=== PATIENT | female | born 1990 | race Hispanic/Latino ===

== ENCOUNTER 2023-12-23 12:47 | Observation (INO) | payer MEDICAID, SELFPAY ==
[2023-12-23] VITALS (7 sets, daily range): BP systolic 106–133; BP diastolic 70–81; PULSE 65–90; RESP 16–18; TEMP 36.5–37.2; O2SAT 94–99; BMI 30.2
[2023-12-23] MEDS: ONDANSETRON 4 MG/2 ML INJ IV (13:16)
[2023-12-23 13:37] LABS: Add Manual Diff / Slide Review NO; Basophils Absolute Auto 0 /uL (0-100); Basophils Percent Auto 0.3 % (0-2); Eosinophils Absolute Auto 0 /uL (0-450); Eosinophils Percent Auto 0.1 % (2-4); Hematocrit 39.4 % (36-46); Hemoglobin 13.4 g/dL (12.0-16.0); Lymphocytes Absolute Auto 700 /uL (1100-4500); Lymphocytes Percent Auto 5.8 % (25-40); Mean Corpuscular HGB Conc 34.1 % (30-36); Mean Corpuscular Hemoglobin 29.8 PG (26-34); Mean Corpuscular Volume 87.3 fL (80-100); Monocytes Absolute Auto 600 /uL (0-900); Monocytes Percent Auto 4.7 % (3-14); Neutrophils Absolute Auto 11100 /uL (1500-7000); Neutrophils Percent Auto 89.1 % (50-75); Platelet Count 288 X10^3/uL (150-400); Red Blood Cell Count 4.51 X10^6/uL (4.0-5.2); Red Cell Distribution Width 13.9 % (11.6-14.8); White Blood Cell Count 12.4 X10^3/uL (4.5-11.0)
[2023-12-23 13:46] LABS: Alanine Aminotransferase 14 IU/L (<35); Albumin 4.8 g/dL (3.5-5.0); Albumin Globulin Ratio 1.5 (1.0-2.8); Alkaline Phosphatase 109 U/L (38-126); Aspartate Aminotransferase 21 IU/L (14-36); BUN Creatinine Ratio 15.5 (6-22); Blood Urea Nitrogen 9 mg/dL (7-17); Calcium 9.5 mg/dL (8.4-10.2); Carbon Dioxide 18 mmol/L (22-32); Chloride 107 mmol/L (98-107); Estimated Glomerular Filt Rate > 60 mL/min (>60); Globulin 3.3 g/dL (1.7-4.1); Glucose 130 mg/dL (70-100); HEMOLYSIS < 15 (0-50); Lipase 57 U/L (23-300); Potassium 3.5 mmol/L (3.4-5.1); Sodium 139 mmol/L (137-145); Total Protein 8.1 g/dL (6.3-8.2)
[2023-12-23 13:59] LABS: Bacteria Urine Occasional (0-1); Culture Indicated Urine Cult Not Indicated; RBC Urine 1-5/HPF (0-5/HPF); Squamous Epithelial Cell Urine 5-10 /HPF (0-5/HPF); Urine Volume 10mL (spun); WBC Urine 5-10/HPF (0-5/HPF)
--- NOTE | 2023-12-23 15:22 | ED.ABDPAIN ---
HPI - Abdominal Pain General Chief Complaint: Abdominal Pain Stated Complaint: abd pain/thinks galbladder Time Seen by Provider: 12/23/23 15:21 Source: patient, RN notes reviewed and old records reviewed Mode of arrival: Ambulatory Limitations: no limitations History of Present Illness HPI narrative: 33-year-old female several months and presents with a right upper quadrant abdominal pain nausea and vomiting. Patient states she has had symptoms on and off in the past but this has been persistent. Started at 5:00 a.m. this morning. She states movement does make it worse but also eating certain foods. Denies fevers but she was feeling chilled and sweaty when she was throwing up earlier this morning. She has had nausea and vomiting on off today. Pain is in the right upper quadrant radiates a little bit to her back. Denies any radiation elsewhere. Normal bowel movements no black or bloody stools. No dysuria urgency or frequency. No new vaginal bleeding or discharge. Patient states no daily prescription medications, did take Tylenol earlier this morning but states she thinks she threw it up. Denies any prior surgeries. No known drug allergies. No tobacco, alcohol or recreational drugs. Related Data Allergies Allergy/AdvReac Type Severity Reaction Status Date / Time No Known Drug Allergies Allergy Verified 12/23/23 13:15 Review of Systems Review of Systems ROS Unobtainable: All systems reviewed & are unremarkable except as noted in HPI and below Patient History Social History Smoking Status: Unknown if ever smoked Smoking Status: Unknown if ever smoked alcohol intake frequency: holidays/special occasions only Substance Use Type: does not use Exam Narrative Exam Narrative: GENERAL: Alert and oriented x three, female in moderate distress HEENT: Head normocephalic, atraumatic, EOMI, pupils reactive, face symmetric, moist mucous membranes NECK: Supple, full range of motion CARDIOVASCULAR: Regular rate and rhythm without murmurs, rubs or gallops. RESPIRATORY: Breath sounds equal bilaterally, no wheezes rales or rhonchi. ABDOMEN: Soft, positive for right upper quadrant tenderness Normoactive bowel sounds all 4 quadrants. No guarding or rebound, rigidity, no mass, no pulsatile mass or bruit. : No CVA tenderness EXTREMITIES: Normal range of motion, no clubbing or edema. Neurovascularly intact NEUROLOGICAL: Cranial nerves II through XII grossly intact. Moving all extremities SKIN: Warm, dry, no petechiae, no rashes or lesions. Initial Vital Signs Initial Vital Signs: Vital Signs Temperature 97.7 F 12/23/23 13:00 Pulse Rate 65 12/23/23 13:00 Respiratory Rate 18 12/23/23 13:00 Blood Pressure 133/81 12/23/23 13:00 Pulse Oximetry 97 12/23/23 13:00 Oxygen Delivery Method Room Air 12/23/23 13:00 Course Orders Ordered: ED Orders 12/23/23 13:05 Urine Culture Stat Urine Microscopic Stat 12/23/23 13:06 EKG-12 Lead Stat 12/23/23 13:11 Complete Blood Count AUTO DIFF Stat Comprehensive Metabolic Panel Stat Lipase Stat 12/23/23 15:39 US abdomen limited Stat Acetaminophen (Acetaminophen 325 Mg Tablet) 650 mg PO Q6H PRN PRN Reason: Fever/Mild Pain (1-3) Hydrocodone Bitart/Acetaminophen (Hydrocodone/Acet 5/325 Tablet) 1 tab PO Q4H PRN PRN Reason: Pain, Moderate (4-6) Hydrocodone Bitart/Acetaminophen (Hydrocodone/Acet 5/325 Tablet) 2 tab PO Q4H PRN PRN Reason: Pain, Severe (7-10) Hydromorphone HCl (Hydromorphone 0.5 Mg Inj) 0.5 mg IV Q2H PRN PRN Reason: Pain, Severe (7-10) Sodium Chloride (Normal Saline 0.9%) 1,000 mls @ 150 mls/hr IV CONT CONNOR Last Admin: 12/23/23 18:15 Dose: 150 mls/hr Documented By: Infusion: 12/23/23 18:15 Dose: Infused Documented By: Infusion: 12/23/23 17:38 Dose: 0 mls/hr Documented By: Infusion: 12/23/23 17:22 Dose: 0 mls/hr Documented By: Admin: 12/23/23 17:22 Dose: 150 mls/hr Documented By: KOFI Lactated Ringer's (Lactated Ringers) 1,000 mls @ 100 mls/hr IV CONT CONNOR Piperacillin Sod/Tazobactam (Sod 3.375 gm/ Sodium Chloride) 100 mls @ 25 mls/hr IV Q8H CONNOR Ibuprofen (Ibuprofen 600 Mg Tablet) 600 mg PO Q6H PRN PRN Reason: Fever/Mild Pain (1-3) Naloxone HCl (Naloxone 0.4 Mg/Ml Vial) 0.2 mg IV Q2MIN PRN PRN Reason: Opiate Reversal Ondansetron HCl (Ondansetron 4 Mg/2 Ml Inj) 4 mg IV NOW PRN PRN Reason: Nausea And Vomiting Last Admin: 12/23/23 13:16 Dose: 4 mg Documented By: BS Ondansetron HCl (Ondansetron 4 Mg Odt) 4 mg PO NOW PRN PRN Reason: Nausea And Vomiting Discontinued Medications Sodium Chloride (Normal Saline 0.9%) 1,000 mls @ 1,000 mls/hr IV BOLUS ONE Stop: 12/23/23 16:38 Last Infusion: 12/23/23 17:08 Dose: Infused Documented By: Admin: 12/23/23 15:47 Dose: 1,000 mls/hr Documented By: KOFI Piperacillin Sod/Tazobactam (Sod 4.5 gm/ Sodium Chloride) 100 mls @ 200 mls/hr IV NOW ONE Stop: 12/23/23 17:07 Last Admin: 12/23/23 17:21 Dose: 200 mls/hr Documented By: KOFI Piperacillin Sod/Tazobactam (Sod 3.375 gm/ Sodium Chloride) 100 mls @ 25 mls/hr IV Q8H [facility] Last Admin: 12/23/23 18:14 Dose: Not Given Documented By: CHAS Ketorolac Tromethamine (Ketorolac 30 Mg/Ml Vial) 15 mg IV NOW ONE Stop: 12/23/23 15:40 Last Admin: 12/23/23 15:48 Dose: 15 mg Documented By: KOFI Morphine Sulfate (Morphine 4 Mg/Ml Inj) 4 mg IV NOW ONE Stop: 12/23/23 17:08 Last Admin: 12/23/23 17:20 Dose: 4 mg Documented By: KOFI Vital Signs Vital signs: Vital Signs - 8 hr 12/23/23 13:00 12/23/23 13:04 12/23/23 13:05 Temperature 97.7 F Pulse Rate 65 66 Respiratory Rate 18 Blood Pressure 133/81 133/81 Pulse Oximetry 97 99 Oxygen Delivery Method Room Air Room Air 12/23/23 14:21 12/23/23 14:21 12/23/23 17:05 Temperature 98.5 F Pulse Rate 68 90 Respiratory Rate Blood Pressure 106/70 110/72 Pulse Oximetry 99 94 Oxygen Delivery Method Room Air MDM - Abdominal Pain Lab Data 12/23/23 13:11 12/23/23 13:11 Labs: Lab Results 12/23/23 12/23/23 Range/Units 13:05 13:11 WBC 12.4 H (4.5-11.0) X10^3/uL RBC 4.51 (4.0-5.2) X10^6/uL Hgb 13.4 (12.0-16.0) g/dL Hct 39.4 (36-46) % MCV 87.3 (80-100) fL MCH 29.8 (26-34) PG MCHC 34.1 (30-36) % RDW 13.9 (11.6-14.8) % Plt Count 288 (150-400) X10^3/uL Neut % (Auto) 89.1 H (50-75) % Lymph % (Auto) 5.8 L (25-40) % [place] % (Auto) 4.7 (3-14) % Eos % (Auto) 0.1 L (2-4) % Baso % (Auto) 0.3 (0-2) % Neut # (Auto) 70659 H (9649-2048) /uL Lymph # (Auto) 700 L (1074-7794) /uL [place] # (Auto) 600 (0-900) /uL Eos # (Auto) 0 (0-450) /uL Baso # (Auto) 0 (0-100) /uL Sodium 139 (137-145) mmol/L Potassium 3.5 (3.4-5.1) mmol/L Chloride 107 (98-107) mmol/L Carbon Dioxide 18 L (22-32) mmol/L BUN 9 (7-17) mg/dL Creatinine 0.58 (0.52-1.04) mg/dL Estimated GFR > 60 (>60) mL/min BUN/Creatinine Ratio 15.5 (6-22) Glucose 130 H (70-100) mg/dL Calcium 9.5 (8.4-10.2) mg/dL Total Bilirubin 1.0 (0.2-1.3) mg/dL AST 21 (14-36) IU/L ALT 14 (<35) IU/L Alkaline Phosphatase 109 (38-126) U/L Total Protein 8.1 (6.3-8.2) g/dL Albumin 4.8 (3.5-5.0) g/dL Globulin 3.3 (1.7-4.1) g/dL Albumin/Globulin Ratio 1.5 (1.0-2.8) Lipase 57 (23-300) U/L Urine RBC 1-5/hpf (0-5/HPF) Urine WBC 5-10/hpf H (0-5/HPF) Ur Squamous Epith Cells 5-10 /hpf H (0-5/HPF) Urine Bacteria Occasional (0-1) (None) Ur Culture Indicated? Cult not indicated Vol Urine Centrifuged 10ml (spun) Point of care testing: Point of Care Testing Test Results Negative Urine Dip Bedside Urine Glucose Negative Bedside Urine Bilirubin - Negative Bedside Urine Ketone +++ 80 Urine Specific [place] 1.015 Bedside Urine Occult Blood +/- Bedside Urine pH 8.5 Bedside Urine Protein +/- 15 Bedside Urine Urobilinogen +/- 1mg Bedside Urine Nitrite - Negative Bedside Urine Leukocytes +/- 15 Esterase Imaging Data US - abdomen: Radiologist's Impression: Shona Irby??33??F??1990 ? Allergy/Adv: No Known Drug Allergies (More??) Close Abdomen Ultrasound (Signed) Elly Monsalve - 12/23/23 Launch?[place] [address] Ultrasound Report Signed Patient: Shona Irby MR#: [id number] : 1990 Acct:[id number] Age/Sex: 33 / F Date of Service: 12/23/23 Loc: ED Accession Number: [id number] Procedure: US abdomen limited Ordering Provider: Xiomara Wright D.O. PROCEDURE: US ABDOMEN LIMITED INDICATIONS: RUQ pain, n/v, intermittent symptoms TECHNIQUE: Real-time focused scanning was performed of the abdomen, with image documentation. COMPARISON: None. FINDINGS: Liver measures 16.4 cm with mild steatosis. Multiple stones are present within the gallbladder. Wall thickness measures 4.9 mm. Pericholecystic fluid is present. Sonographic Muro sign is present. Common bile duct measures 5.9 mm. IMPRESSION: Cholelithiasis with thickened gallbladder wall and mild appearance of pericholecystic fluid most consistent with cholecystitis. Dictated by: Elly Monsalve M.D. on 12/23/2023 at 16:59 Approved by: Elly Monsalve M.D. on 12/23/2023 at 16:59 MDM Narrative Medical decision making narrative: 33-year-old female with right upper quadrant tenderness, nausea vomiting and discomfort has been intermittent recently but persistent since 5:00 a.m. this morning. Patient is tender in her right upper quadrant on exam. White count of 12 point, hemoglobin of 13 platelets are 288. Chemistries show CO2 18 normal sodium and potassium with a chloride of 107, glucose of 130 creatinine 0.58 LFTs are Point of care urine shows ketones, urobilinogen, leukocyte esterase. Urine is negative urine micro 1-5 RBCs 5-10 WBCs 5-10 squamous, occasional bacteria Abdominal ultrasound shows gallstones, thickened gallbladder wall 4.9 mm, mild steatosis multiple stones, pericholecystic fluid positive Muro sign and common bile duct measuring 5.9 mm. Patient received fluids, Zofran and Toradol on recheck patient has improved but still uncomfortable. Discussed she is agreeable to something little bit stronger for pain she took 4000 mg of Tylenol earlier today we will give a dose of morphine. Discussed she can still breastfeed but needs to have someone around take baby if she gets sleepy and to watch. Discussed with Dr. Barba who accepts for gallstones and cholecystitis. Patient covered with dose IV antibiotic continue with fluids, pain management and plan for OR likely tomorrow. Discharge Plan Departure Patient Disposition: Admitted As Inpatient Clinical Impression: Calculous cholecystitis Admit Date/Time: 12/23/23 17:07 Admit Provider: Edward Barba
--- NOTE | 2023-12-23 15:39 | DI.US.S_ITS ---
PROCEDURE: US ABDOMEN LIMITED INDICATIONS: RUQ pain, n/v, intermittent symptoms TECHNIQUE: Real-time focused scanning was performed of the abdomen, with image documentation. COMPARISON: None. FINDINGS: Liver measures 16.4 cm with mild steatosis. Multiple stones are present within the gallbladder. Wall thickness measures 4.9 mm. Pericholecystic fluid is present. Sonographic Muro sign is present. Common bile duct measures 5.9 mm. IMPRESSION: Cholelithiasis with thickened gallbladder wall and mild appearance of pericholecystic fluid most consistent with cholecystitis. Dictated by: Elly Monsalve M.D. on 12/23/2023 at 16:59 Approved by: Elly Monsalve M.D. on 12/23/2023 at 16:59
[2023-12-23] MEDS: SODIUM CHLORIDE 0.9% 1,000 ML 1000 ML IV (15:47)
[2023-12-23] MEDS: KETOROLAC 30 MG/ML VIAL 15 MG IV (15:48)
[2023-12-23] MEDS: MORPHINE 4 MG/ML INJ IV (17:20)
[2023-12-23] MEDS: PIPERACILLIN/TAZO 4.5 GM in SODIUM CHLORIDE 0.9% 100 ML IV (17:21)
[2023-12-23] MEDS: SODIUM CHLORIDE 0.9% 1,000 ML 150 ML IV ×3 (17:22→19:00)
--- NOTE | 2023-12-23 17:45 | PM.HP.1 ---
History of Present Illness History of Present Illness Date Patient Seen: 12/23/23 Time Patient Seen: 17:45 Chief complaint: abd pain/thinks galbladder Narrative: Shona is a 33-year-old woman who presented to the ER today with one day of severe right upper quadrant abdominal pain. She has had less severe right upper quadrant pain for quite some time. No prior abdominal surgeries. [facility] Social History Smoking Status: Unknown if ever smoked Meds Home Medications and Allergies Allergies Allergy/AdvReac Type Severity Reaction Status Date / Time No Known Drug Allergies Allergy Verified 12/23/23 13:15 Exam Vital Signs (past 8 hours): - 12/23/23 13:00 12/23/23 13:04 12/23/23 13:05 Temperature 97.7 F Pulse Rate 65 66 Respiratory Rate 18 Blood Pressure 133/81 133/81 Pulse Oximetry 97 99 Oxygen Delivery Method Room Air Room Air 12/23/23 14:21 12/23/23 14:21 12/23/23 17:05 Temperature 98.5 F Pulse Rate 68 90 Respiratory Rate Blood Pressure 106/70 110/72 Pulse Oximetry 99 94 Oxygen Delivery Method Room Air Oxygen Delivery Method Room Air Narrative Exam Narrative: Tenderness to palpation in the right upper quadrant without anurag peritonitis Objective Labs 12/23/23 13:11 12/23/23 13:11 Labs: Laboratory Results - last 24 hr 12/23/23 12/23/23 13:05 13:11 WBC 12.4 H RBC 4.51 Hgb 13.4 Hct 39.4 MCV 87.3 MCH 29.8 MCHC 34.1 RDW 13.9 Plt Count 288 Neut % (Auto) 89.1 H Lymph % (Auto) 5.8 L [place] % (Auto) 4.7 Eos % (Auto) 0.1 L Baso % (Auto) 0.3 Neut # (Auto) 31136 H Lymph # (Auto) 700 L [place] # (Auto) 600 Eos # (Auto) 0 Baso # (Auto) 0 Sodium 139 Potassium 3.5 Chloride 107 Carbon Dioxide 18 L BUN 9 Creatinine 0.58 Estimated GFR > 60 BUN/Creatinine Ratio 15.5 Glucose 130 H Calcium 9.5 Total Bilirubin 1.0 AST 21 ALT 14 Alkaline Phosphatase 109 Total Protein 8.1 Albumin 4.8 Globulin 3.3 Albumin/Globulin Ratio 1.5 Lipase 57 Urine RBC 1-5/hpf Urine WBC 5-10/hpf H Ur Squamous Epith Cells 5-10 /hpf H Urine Bacteria Occasional (0-1) Ur Culture Indicated? Cult not indicated Vol Urine Centrifuged 10ml (spun) Assessment & Plan Assessment and plan (1) Acute cholecystitis due to biliary calculus: Status: Acute Plan Plan for laparoscopic cholecystectomy with Dr. Rubalcava tomorrow pending OR availability. We will start her on antibiotics for presumed acute cholecystitis. Time-Based Coding :: [TOTAL MINUTES] spent with patient and on the chart (including review of chart, obtaining history, exam, reviewing outside data, placing orders, documenting exam and treatment plan, and counseling patient) on [DATE].
--- NOTE | 2023-12-23 18:57 | PC.NURSE ---
Addendum entered by Анна Aquino R.N. 12/23/23 20:12: Pt is A&OX4, VSS,afebrile on RA. She reports pain is controlled from pain medication received in ED, and currently denies pain. She reports feeling starving but is afraid to eat, as she had been vomiting throughout the day. She is able to tolerate jello and pudding this evening. IV abx zosyn then IVF LR at 150ml/hr,, admission assessment completed, she is oriented to room and unit. She is independent in the room and calls appropriately for assistance. Continuous monitoring. Original Note: Patient arrived from ED at 1747
[2023-12-23] MEDS: HYDROCODONE/ACET 5/325 TABLET 1 TAB PO (20:01)
[2023-12-23] MEDS: LACTATED RINGERS 1,000 ML 100 ML IV (20:08)
[2023-12-23] MEDS: PIPERACILLIN/TAZO 3.375 GM in SODIUM CHLORIDE 0.9% 100 ML IV (20:58)
[2023-12-24] VITALS (8 sets, daily range): BP systolic 88–123; BP diastolic 53–77; PULSE 87–111; RESP 14–19; TEMP 36.8–37.6; O2SAT 92–100; BMI 30.2
--- NOTE | 2023-12-24 | PATH_ITS ---
[facility] Accession Number: [id number] No. of containers..01 Tissue . 01 Material submitted: . gallbladder - GALLBLADDER . 01 Diagnosis: GALLBLADDER, CHOLECYSTECTOMY: Acute and chronic cholecystitis with cholelithiasis. Negative for dysplasia or malignancy. TXN 12/27/2023 1349 Local . 01 Electronically signed: . Jun Aguirre MD, Pathologist NPI- [id number] . 01 Gross description: . Received in formalin, labeled with two identifiers and gallbladder, is an intact gallbladder measuring 11.1 x 5.6 x 3.9 cm with an unremarkable helton external surface. The cystic duct margin is inked blue. No pericystic lymph node is identified. The lumen contains multiple dark, smooth calculi measuring up to 2.5 cm in greatest dimension, grossly obstructing the cystic duct. The mucosa is diffusely beatty-brown and trabecular with multiple ulcerated areas ranging from 0.4-0.7 cm in greatest dimension. No yellow discoloration or polyps are identified. The quinones average 0.4 cm thick. Data Deliver[employer] Manager sections to include the cystic duct margin and full-thickness sections to include ulcerated areas are submitted in cassette A1. ([id number]) /FRR 12/25/2023 1625 Local . 01 Pathologist provided ICD-10: K81.9 . 01 CPT . 267615 Specimen Comment: A courtesy copy of this report has been sent to [phone] Performed at: [address] [id number] MD Bill Boyle MD Phone: [phone]
[2023-12-24] MEDS: PIPERACILLIN/TAZO 3.375 GM in SODIUM CHLORIDE 0.9% 100 ML IV (05:59)
[2023-12-24 06:43] LABS: Add Manual Diff / Slide Review NO; Basophils Absolute Auto 0 /uL (0-100); Basophils Percent Auto 0.2 % (0-2); Eosinophils Absolute Auto 0 /uL (0-450); Hematocrit 38.7 % (36-46); Hemoglobin 13.5 g/dL (12.0-16.0); Lymphocytes Absolute Auto 700 /uL (1100-4500); Lymphocytes Percent Auto 3.7 % (25-40); Mean Corpuscular HGB Conc 34.9 % (30-36); Mean Corpuscular Hemoglobin 30.7 PG (26-34); Mean Corpuscular Volume 87.9 fL (80-100); Monocytes Absolute Auto 1300 /uL (0-900); Monocytes Percent Auto 6.7 % (3-14); Neutrophils Absolute Auto 17000 /uL (1500-7000); Neutrophils Percent Auto 89.4 % (50-75); Platelet Count 252 X10^3/uL (150-400); Red Blood Cell Count 4.41 X10^6/uL (4.0-5.2); Red Cell Distribution Width 13.7 % (11.6-14.8)
[2023-12-24 07:06] LABS: Alanine Aminotransferase 13 IU/L (<35); Albumin 4.4 g/dL (3.5-5.0); Albumin Globulin Ratio 1.4 (1.0-2.8); Alkaline Phosphatase 88 U/L (38-126); Aspartate Aminotransferase 24 IU/L (14-36); BUN Creatinine Ratio 13.4 (6-22); Bilirubin Total 1.5 mg/dL (0.2-1.3); Blood Urea Nitrogen 9 mg/dL (7-17); Calcium 8.9 mg/dL (8.4-10.2); Carbon Dioxide 18 mmol/L (22-32); Chloride 107 mmol/L (98-107); Estimated Glomerular Filt Rate > 60 mL/min (>60); Globulin 3.2 g/dL (1.7-4.1); Glucose 131 mg/dL (70-100); HEMOLYSIS < 15 (0-50); Potassium 3.4 mmol/L (3.4-5.1); Sodium 137 mmol/L (137-145); Total Protein 7.6 g/dL (6.3-8.2)
--- NOTE | 2023-12-24 07:36 | PM.PREOP ---
Pre-operative Note Interval Note History & Physical reviewed/Exam performed by Physician: Yes Changes to H&P: No H&P completed within 30 days and has changed as indicated here:: 33-year-old woman with symptoms and radiographic findings consistent with acute cholecystitis. We discussed management and recommended proceeding with laparoscopic cholecystectomy. Overview of the operation discussed. Operative risks including hemorrhage, infection, conversion to open, damage to surrounding structures including bile duct injury were reviewed. Her questions have been answered and she is in agreement with this plan. She provides her written and verbal consent to proceed.
--- NOTE | 2023-12-24 08:23 | SUR.OPER ---
Supine on padded OR bed, head on pillow, arms secured on padded arm boards at <90 degrees abduction, legs uncrossed, safety belt at thigh, tape over blanket over lower legs.
[2023-12-24] MEDS: LACTATED RINGERS 1,000 ML 42 ML IV ×2 (08:30→08:53)
[2023-12-24] MEDS: BUPIVACAINE 0.25% (PF) VIAL 30 ML INJ (08:50)
--- NOTE | 2023-12-24 09:21 | P.OP_ITS ---
Operative Date/Time/Diagnoses Date of procedure: 12/24/23 Time of procedure: 09:21 Pre-op diagnosis: Acute cholecystitis Post-op diagnosis: other (Gangrenous cholecystitis) Procedure & Clinicians Procedure: Laparoscopic cholecystectomy Same procedure as scheduled: Yes Indications: 33-year-old woman with symptoms and radiographic findings consistent with acute cholecystitis Surgeon: Rogelio Borden Yes if Unassisted: Yes Anesthesia Type: General Operative Notes Findings: Gangrenous cholecystitis Specimen(s): other (Gallbladder) Estimated Blood Loss (mL): 100 Procedure in detail: The patient was placed supine on the table and bilateral lower extremity compression devices were applied. Anesthesia was induced they were intubated with an endotracheal tube and received 2g of Ancef. A time-out was performed. They were prepped and draped in sterile fashion. An infraumbilical incision was made. The fascia was elevated incised and the abdomen was entered atraumatically. A blunt tip 12mm balloon trocar was then inserted, pneumoperitoneum was established and inspection of the abdomen demonstrated no evidence of injury. They were placed head up and right side up and then a 11 mm port was placed high in the epigastrium and two 5mm in the right upper quadrant. Gallbladder was gangrenous and tense. It was percutaneously drained. The gallbladder was grasped by the fundus and retracted over the liver and retracted laterally by the infundibulum. Using electrocautery the lateral plane between the gallbladder and the liver was opened towards the fundus. The gallbladder was then retracted laterally and the medial plane was developed in the same manner. With the gallbladder mobilized the bottom of the cystic plate was visualized. The hepatocystic triangle was meticulosly skeletonized with blunt dissection of fat and fibrous tissue from both the front and the back. Only two structures were then clearly seen entering the gallbladder the cystic duct and the cystic artery. With the critical view of safety fully established the cystic duct was clipped twice proximally and once distally using the 10 mm Weck hemoclip applied under direct visualization and then sharply divided. The cystic artery was divided in the same fashion. The gallbladder was removed from the liver bed using electro cautery. The liver bed was then inspected for hemostasis and this was achieved. The abdomen was irrigated with sterile saline and inspection was made that showed the clips in good position. The specimen was removed using Endo-Catch. The abdomen was desufflated. The umbilical fascia was closed with 0 Vicryl in a [id number] fashion under direct visualization. Skin inci sions were irrigated and closed with 4-0 Monocryl. 30 ml of 0.25% bupivacaine was infiltrated into the subcutaneous tissue of the incisions. The wounds were sealed with Dermabond. Patient emerged from anesthesia was extubated and transferred to recovery in stable condition. The sponge and instrument count at the end of the operation was correct. Complications: none Post-operative Condition: stable Disposition: Acute Care
--- NOTE | 2023-12-24 10:37 | CM.DANOTE ---
DCP Assessment Note: Pt is a 33yo female, resident of [place], is admitted for abdominal pain and is s/p Cholecystectomy. Pt lives in a house with her partner, Sreedhar, and their 7mo son. Pt's insurance is Medicaid. Reviewed chart and team rounds for pt's medical status and initial discharge needs. DCP met w/patient's significant other and 7mo son at bedside; introduced self and role. Pt was at surgery at time of assessment. Pt's partner was able to confirm living situation and independence at baseline. Per partner, pt and family anticipating to discharge this afternoon if pt is able to tolerate on PO pain medications. Pt's partner denied any discharge needs at this time. Pt returned to room from PACU after DCP coordinated getting a bassinet for pt's son in the room. Plan: Anticipating pt to discharge this afternoon when medically stable with partner to transport and assist. CM team will follow closely for coordination of discharge plans. TUYET Prater Discharge Planning/Care Management CM Discharge Assessment Start: 12/24/23 10:34 Freq: Status: Active Protocol: Document 12/24/23 10:34 MW (Rec: 12/24/23 10:37 MW [id number]) Discharge Planning Assessment Assigned [employer] Helper SHAILA Crook DPOA/Assigned Designee Name Sreedhar Prince, Partner Contact Information [phone] Advance Directives? No History Provided By Family Member,Medical Record Expected Length of Stay 1 Has Patient been admitted in last 30 No days? Prior Living Arrangements House Household Members significant other,family, children Comment Per partner, pt lives with partner, his brother and their 7mo son. Type of transporation used prior to Drives own vehicle admit Independent with ADL's Yes Is patient alert and oriented? Yes Caregiver for Another Yes: Patient has a 7mo son. Barriers to Discharge No Discharge Plan Home Whiteboard Updated in Patient Room with Yes name and ext. # of Slate Ro[employer]er Helper Comment [phone] Please Provide Date Initial DC 12/24/23 Assessment Was Performed Next Review Type Continued Stay Review
[2023-12-24] MEDS: HYDROCODONE/ACET 5/325 TABLET 1 TAB PO (13:17)
--- NOTE | 2023-12-24 14:16 | PC.NURSE ---
Addendum entered by Анна Aquino R.N. 12/24/23 14:19: She is escorted via w/ch by RN to private vehicle with spouse for discharge home this afternoon at approximately 1325 Original Note: Patient leaving for PREOP This a.m. at 0715 via bed. She returns to floor at approximately 1115 this a.m. A&Ox4. VSS, afebrile on RA. Patient reports pain is tolerable, BS hypoactiv, she is able to stand and walk without difficulty to void. No difficulty voiding. She denies dizziness, n/v and she tolerates lunch well. After lunch MD Rubalcava at bedside clearing patient for discharge home with meds and x2 week follow up. She verbalizes understanding of discharge instructions, activity limitations, site care,s/sx of infection and follow up appointment.
== END 2023-12-24 13:25 | disposition home or self-care (01) ==
LOC: ED 15:21 → AC 17:09
PROVIDERS: Surgery; Admitting Provider Surgery; Emergency Provider Emergency Medicine; Referring Provider Emergency Medicine; Visit Provider Surgery
PROC: 0FT44ZZ Resection of Gallbladder, Percutaneous Endoscopic Approach (ICD-10-PCS; CPT 47562; principal; 2023-12-24 07:45)
DX: K80.12 Calculus of gallbladder with acute and chronic cholecystitis without obstruction (principal)
CPT/HCPCS: 47562; 36415; 76705; 80053; 81003; 81015; 81025; 83690; 85025; 87077; 87086; 87147; 96361; 96365; 96366; 96375; 99284; G0378; J0330; J1100; J1885; J2270; J2405; J2543; J2704; J3010

== ENCOUNTER → 2024-06-29 13:27 | Outpatient (CLI) | payer OTHER, SELFPAY ==
[2023-12-23 19:01] VITALS: BMI 30.2
--- NOTE | 2024-06-29 | DI.US.S_ITS ---
PROCEDURE: US OB LIMITED INDICATIONS: DATING / VIABILITY OUTSIDE/PRIOR DATING DATA: Last menstrual period (LMP): 03/13/2024. LMP-based estimated date of delivery (YADIRA): 12/18/2024. First dating scan (date and location): 06/29/2024. Estimated date of delivery (YADIRA) from first dating scan: 12/27/2024. TECHNIQUE: Real-time scanning was performed of the fetus, with image documentation. Endovaginal scanning: No COMPARISON: None. FINDINGS: A single living intrauterine gestation is present. Presentation: Transverse. Placenta: Placental position is anterior, without previa. Amniotic fluid index: 10.1 cm, normal range is 5-24 cm. Single deepest vertical pocket is 3.5 cm. heart rate: 153 beats per minute. Maternal cervical canal: Not well seen BPD: 2.5 cm, 14 week 3 day HC: 9.1 cm, 14 week 1 day AC: 8.2 cm, 14 week 4 day FL: 1.1 cm, 13 week 0 day Clinically estimated gestational age: 15 week 3 day Estimated gestational age from initial scan: 14 week 1 day IMPRESSION: Single live intrauterine consistent with a 14 week 1 day by current ultrasound Approved by: Kj Lynne M.D. on 06/29/2024 at 14:35
== END ==
PROVIDERS: Referring Provider Midwife; Visit Provider Midwife
DX: Z32.01 Encounter for pregnancy test, result positive (principal); Z3A.14 14 weeks gestation of pregnancy
CPT/HCPCS: 76815

== ENCOUNTER → 2024-11-27 15:22 | Outpatient (CLI) | payer OTHER, SELFPAY ==
[2023-12-23 19:01] VITALS: BMI 30.2
--- NOTE | 2024-11-27 15:23 | DI.US.S_ITS ---
PROCEDURE: US OB LIMITED INDICATIONS: BPP AND GROWTH OUTSIDE/PRIOR DATING DATA: The calculations are made using the YADIRA of 12/27/2024. TECHNIQUE: Real-time scanning was performed of the fetus, with image documentation and biometric measurements. Endovaginal scanning: Not performed COMPARISON: [facility], OB LIMITED, 06/29/2024, 13:41. FINDINGS: General: A single living intrauterine gestation is present. Presentation: Vertex. Placenta: Placental position is anterior , without previa. Amniotic fluid index: 14.2 cm, normal range is 5-24 cm. Single deepest vertical pocket is 5.8 cm. heart rate: 143 beats per minute. Maternal cervical canal: 4.6 cm long. Normal lower limit is 2.5 cm. biometrics: Biparietal diameter: 8.6 cm, 34 weeks 6 days Head circumference: 31.6 cm, 35 weeks 4 days Abdominal circumference: 32.2 cm, 36 weeks 1 day Femur length: 6.0 cm, 31 weeks 1 day Clinically estimated gestational age: 35 weeks 5 days Composite gestational age from present scan: 34 weeks 3 days Estimated weight and percentile: 2475 g, 21st percentile Biophysical profile: Tone: 2 Movement: 2 Respiration: 0 Largest Pocket: 2 IMPRESSION: 1. Single live intrauterine consistent with 35 weeks and 3 days. 2. Biophysical profile 10/29. Respiration is not seen. 3. Estimated weight is in the 21st percentile. Of note, femur length is decreased compared to the measurements. We strive to produce accurate, complete, and clear reports of imaging services. To assist us in improving patient care, this report was composed using standard report templates and voice recognition software. Therefore, it may contain abnormal punctuation, insertions and/or omissions. Occasional wrong-word or sound-alike substitutions may occur. Though we review the report and make efforts to correct it, we do recommend that the report be read carefully in proper context to recognize any text inaccuracies. Dictated by: Dwight Carrasquillo M.D. on 11/28/2024 at 9:50 Approved by: Dwight Carrasquillo M.D. on 11/28/2024 at 9:55
== END ==
PROVIDERS: Referring Provider Midwife; Visit Provider Midwife
DX: Z36.89 Encounter for other specified antenatal screening (principal); Z3A.35 35 weeks gestation of pregnancy
CPT/HCPCS: 76815

== ENCOUNTER 2024-11-28 20:09 | Outpatient (CLI) | payer OTHER, SELFPAY ==
[2023-12-23 19:01] VITALS: BMI 30.2
== END 2024-11-28 21:30 | disposition home or self-care (01) ==
LOC: OB 11-29 17:29
PROVIDERS: Referring Provider Family Medicine; Visit Provider Family Medicine
DX: Z34.83 Encounter for supervision of other normal pregnancy, third trimester (principal); Z3A.35 35 weeks gestation of pregnancy
CPT/HCPCS: 59025; G0378; G0379